=== PATIENT | female | born 1995 | race Caucasian/White ===

== ENCOUNTER 2025-02-23 10:17 | Emergency (ER) | payer BC, OTHER ==
[~2025-02-23] VITALS: Ht 175.3 cm; Wt 79.0 kg
--- NOTE | 2025-02-23 10:53 | ED.PDOC ---
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 Patient reports light bleeding at first that progressively got heavier, states she is using one pad every 3 hours and noted small blood clots. Patient mentions 6 weeks gestation with [employer] history of . Patient has some mild cramping with no back pain, fever, chills, nausea, vomiting, or diarrhea. Patient denies any substance, alcohol or tobacco use. Chief Complaint: Vaginal Bleed Time Seen by MD: 10:44 Reviewed Notes: Nurses Notes, Medications, Allergies Allergies: Coded Allergies: NO KNOWN ALLERGIES (Unverified , 02/23/25) Information Source: Patient Mode of Arrival: Ambulatory Timing: Days (1) Severity: Moderate Vaginal Discharge: None Vaginal Lesions: None Bleeding Quality: Bright Red, Clotted Vaginal Mass: None Onset Of Mass/Bleeding: Spontaneous Sexual Activity: Last Consensual [place]: Unknown Control: None History of: Current Blood Type: Unknown Associated Signs and Symptoms: Vaginal Bleeding, Cramping Past Medical History PAST MEDICAL HISTORY: Thyroid Surgical History (Other): adenoidectomy and benign tumor removal from her back 2 Para 1 AB 0 Family History Family History: Reviewed,noncontributory to illness Social History Smoker: Non-Smoker Alcohol: Denies ETOH Use Drugs: Denies Drug Use Lives In: Home Constitutional: denies: chills, diaphoresis, fatigue, fever, malaise, sweats, weakness, others EENTM: denies: blurred vision, double vision, ear bleeding, ear discharge, ear drainage, ear pain, ear ringing, eye pain, eye redness, hearing loss, mouth pain, mouth swelling, nasal discharge, nose bleeding, nose congestion, nose pain, photophobia, tearing, throat pain, throat swelling, voice changes, others Respiratory: denies: cough, hemoptysis, orthopnea, SOB at rest, shortness of breath, SOB with excertion, stridor, wheezing, others Cardiovascular: denies: chest pain, dizzy spells, diaphoresis, Dyspnea on exertion, edema, irregular heart beat, left arm pain, lightheadedness, palpitations, PND, syncope, others Gastrointestinal: denies: abdomen distended, abdominal pain, blood streaked bowels, constipated, diarrhea, dysphagia, difficulty swallowing, hematemesis, melena, nausea, poor appetite, poor fluid intake, rectal bleeding, rectal pain, vomiting, others Genitourinary: reports: abnormal vagina bleeding, pain, ; denies: burning, dyspareunia, dysuria, flank pain, frequency, hematuria, incontinence, vagina discharge, urgency, others Neurological: denies: dizziness, fainting, headache, left sided numbness, left sided weakness, numbness, paresthesia, pre-existing deficit, right sided numbness, right sided weakness, seizure, speech problems, tingling, tremors, weakness, others Musculoskeletal: denies: back pain, gout, joint pain, joint swelling, muscle pain, muscle stiffness, neck pain, others Integumetry: denies: bruises, change in color, change in hair/nails, dryness, laceration, lesions, lumps, rash, wounds, others Allergic/Immunocompromised: denies: Difficulty Healing, Frequent Infections, Hives, Itching, others Hematologic/Lymphatic: reports: blood clots; denies: anemia, easy bleeding, easy bruising, swollen glands, others Endocrine: denies: excessive hunger, excessive sweating, excessive thirst, excessive urination, flushing, intolerance to cold, intolerance to heat, unexplained weight gain, unexplained weight loss, others Psychiatric: denies: anxiety, bipolar disorder, depression, hopeless, panic disorder, schizophrenia, sleepless, suicidal, others All Other Systems: Reviewed and Negative Physical Exam General Appearance: No Apparent Distress HEENT: Normal ENT Inspection, Pharynx Normal, TMs Normal Neck: Full Range of Motion, Non-Tender, Normal, Normal Inspection Respiratory: Chest Non-Tender, Lungs Clear, No Accessory Muscle Use, No Respiratory Distress, Normal Breath Sounds Cardiovascular: No Edema, No JVD, No Murmur, No Gallop, Normal Peripheral Pulses, Regular Rate/Rhythm Breast Exam: Deferred Gastrointestinal: No Organomegaly, Non Tender, No Pulsatile Mass, Normal Bowel Sounds, Soft Genitalia: Deferred Pelvic: Deferred Rectal: Deferred Extremities: No calf tenderness, Normal capillary refill, Normal inspection, Normal range of motion, Non-tender, No pedal edema Musculoskeletal : Apperance: Normal Neurologic: Alert, plum packer II-XII nml as Tested, No Motor Deficits, Normal Affect, Normal Mood, No Sensory Deficits Cerebellar Function: Normal Reflexes: Normal Skin: Dry, Normal Color, Warm Lymphatic: No Adenopathy Was a procedure done? Was a procedure done?: No Differential Diagnosis ([employer]) Vaginal Bleeding: - Incomplete, - Inevitable, - Threatened, Ectopic , Menstrual Bleeding, PID, UTI X-Ray, Labs, Meds, VS Vital Signs Date Time Temp Pulse Resp B/P (MAP) Pulse Ox O2 Delivery O2 Flow Rate FiO2 02/23/25 12:32 97.3 90 18 112/75 (87) 99 97.3 02/23/25 10:34 97.5 84 17 123/81 (95) 100 97.5 Lab Test 02/23/25 10:52 02/23/25 10:28 Range/Units Beta HCG, Quantitative 583.3 H 1.5-4.2 mIU/mL Urine Color Light-yellow Yellow Urine Clarity Clear Clear Urine pH 6.0 5.0-9.0 Urine Specific [place] 1.010 1.001-1.035 Urine Protein Negative Negative Urine Ketones Negative Negative Urine Blood 2+ H Negative /uL Urine Nitrite Negative Negative Urine Bilirubin Negative Negative Urine Urobilinogen Normal Negative mg/dL Urine Leukocyte Esterase Negative Negative /uL Urine RBC 32 0 - 4 /hpf Urine Microscopic WBC 1 0-5 /HPF Urine Squamous Epithelial Cells None seen <5 /hpf Urine Bacteria None seen None Seen /hpf Urine Glucose Normal Normal mg/dL Urine test is negative for infection The quantitative hCG is 583.3 The ultrasound shows: Impression: Small fluid collection within the lower endometrial segment with echogenic foci measuring 1.2 cm, could represent gestational sac/abnormal gestational sac /passing products conception. Recommend follow-up ultrasound and beta HCG correlation. Left ovarian echogenic cystic lesion measuring 1.3 cm with differential considerations including involuting hemorrhagic/corpus luteal cysts, less likely but not ruled out would include ectopic . Recommend follow-up ultrasound and beta HCG correlation. Small amount of free pelvic fluid. The patient is being discharged and will follow up with the primary care doctor The patient will return to the emergency department's condition worsens. The patient was advised to have a repeat ultrasound and repeat quantitative hCG Images Reviewed?: Images reviewed and evaluated by me Time of 1ST Reevaluation: 10:52 Reevaluation 1ST: Unchanged Patient Education/Counseling: Diagnosis, Treatment, Prognosis Family Education/Counseling: No Family Present Departure 1 Departure Time of Disposition: 13:45 Impression: Primary Impression: Threatened Disposition: 01 HOME / SELF CARE / HOMELESS Condition: Fair Discharged With: Self Critical Care Note Critical Care Time?: No Stability Stability form required: No I personally scribed for ILIR ELIZONDO MD ([email or web address]) on 02/23/25 at 10:52. El ectronically submitted by Indira Hickey ([facility]). ILIR ELIZONDO MD Feb 23, 2025 10:52
--- NOTE | 2025-02-23 12:46 | DVH ---
Technique: Real-time ultrasound images through the pelvis using a transabdominal transducer. For bett er evaluation of the ovaries and endometrial stripe, an endovaginal transducer was used. Indication: vag bleeding Comparison: None Findings: The uterus measures 9.4 cm. Small fluid collection within the lower endometrial segment measuring 1. 2 cm which contains echogenic foci. No definitive pole identified Right ovary measures 2.8 x 1.9 x 2.1 cm. Normal flow on color doppler images. No focal masses are anna ntified. Left ovary measures 2.8 x 1.7 x 2.1 cm. Normal flow on color doppler images. Left ovarian Echogenic cystic lesionm measuring 1.3 cm. Small amount of free fluid in the pelvis. Impression: Small fluid collection within the lower endometrial segment with echogenic foci measuring 1.2 cm, cou ld represent gestational sac/abnormal gestational sac /passing products conception. Recommend follow- up ultrasound and beta HCG correlation. Left ovarian echogenic cystic lesion measuring 1.3 cm with differential considerations including invo luting hemorrhagic/corpus luteal cysts, less likely but not ruled out would include ectopic . Recommend follow-up ultrasound and beta HCG correlation. Small amount of free pelvic fluid.
[2025-02-23 12:47] LABS: Urine Protein, UAD Negative (Negative)
[2025-02-23 14:44] VITALS: BP 132/72; PULSE 62; RESP 16; TEMP 98.7; O2SAT 97
== END 2025-02-23 14:42 | disposition home or self-care (01) ==
LOC: ER 10:17
DX: O20.0 Threatened abortion (principal); Z3A.01 Less than 8 weeks gestation of pregnancy
CPT/HCPCS: 36415; 76801; 76817; 81001; 84702